=== PATIENT | male | born 1990 | race Caucasian/White ===

== ENCOUNTER 2022-10-13 09:02 | Emergency (ER) | payer MEDICAID ==
[2022-10-13 09:19] VITALS: RESP 18
[2022-10-13 10:38] LABS: Amorphous Sediment,Urine Moderate /hpf; Appearance,Urine Turbid (Clear); Bacteria,Urine Rare /hpf; Bilirubin,Urine Negative (Negative); Blood,Urine Large (Negative); Budding Yeast,Urine Rare /hpf; Color,Urine Red; Glucose,Urine (UA) Negative (Negative); Ketones,Urine Negative (Negative); Leukocyte Esterase,Urine Trace (Negative); Mucus,Urine Many /hpf; Nitrite,Urine Negative (Negative); PH, Urine 5.5 (5.0-8.0); Protein,Urine 1+ (Negative); RBC,Urine >182 /hpf (0-5); Specific Gravity,Urine 1.026 (1.001-1.035); Urobilinogen,Urine <2.0 mg/dL (<2.0); WBC,Urine 7 /hpf (0-5)
[2022-10-13] MEDS ORDERED: SODIUM CHLORIDE 0.9% 1,000 ML IV ONE (10:41)
--- NOTE | 2022-10-13 10:41 | ED ---
Abdominal Pain HPI - General Chief Complaint: Abdominal Pain Stated Complaint: Abd pain Time Seen by Provider: 10/13/22 10:27 Source: patient Mode of arrival: ambulatory Limitations: no limitations - History of Present Illness Initial Comments: 32 year old male presents to the emergency department for LLQ pain that radiates to his left flank x 1 day. He notes he woke up with a dull pain in the LLQ that has progressively worsened through the morning. He has not tried anything for his symptoms and has never had this before. He denies any trauma or previous injury. He denies fever, vomiting, diarrhea, dysuria, hematuria. He admits to a family history of kidney stones. - Related Data Previous Rx's Medication Instructions Recorded Ketorolac [Toradol] 10 mg PO Q8HR #15 tab 10/13/22 Allergies Allergy/AdvReac Type Severity Reaction Status Date / Time No Known Allergies Allergy Verified 10/13/22 09:19 Review of Systems ROS Statement: Those systems with pertinent positive or pertinent negative responses have been documented in the HPI. ROS Other: All systems not noted in ROS Statement are negative. Past Medical History Past Medical History: No Reported History Past Surgical History: No Surgical Hx Reported Past Psychological History: No Psychological Hx Reported Smoking Status: Never smoker Past Alcohol Use History: Occasional Past Drug Use History: None Reported General Exam Limitations: no limitations General appearance: alert, in no apparent distress Head exam: Present: atraumatic, normocephalic, normal inspection Eye exam: Present: normal appearance, PERRL, EOMI. Absent: scleral icterus, c onjunctival injection, periorbital swelling ENT exam: Present: normal exam, mucous membranes moist Neck exam: Present: normal inspection. Absent: tenderness, meningismus, lymphadenopathy Respiratory exam: Present: normal lung sounds bilaterally. Absent: respiratory distress, wheezes, rales, rhonchi, stridor Cardiovascular Exam: Present: regular rate, normal rhythm, normal heart sounds. Absent: systolic murmur, diastolic murmur, rubs, gallop, clicks GI/Abdominal exam: Present: soft, normal bowel sounds. Absent: distended, tenderness, guarding, rebound, rigid Extremities exam: Present: normal inspection, full ROM, normal capillary refill. Absent: tenderness, pedal edema, joint swelling, calf tenderness Back exam: Present: normal inspection. Absent: CVA tenderness (R), CVA tenderness (L) Neurological exam: Present: alert, oriented X3, CN II-XII intact Psychiatric exam: Present: normal affect, normal mood Skin exam: Present: warm, dry, intact, normal color. Absent: rash Course Vital Signs 10/13/22 10/13/22 10/13/22 09:15 12:15 14:00 Temperature 98 F 98.7 F 98.1 F Pulse Rate 72 83 86 Respiratory 18 18 18 Rate Blood Pressure 148/100 135/78 146/92 O2 Sat by Pulse 100 97 98 Oximetry Medical Decision Making - Medical Decision Making Was pt. sent in by a medical professional or institution (, PA, MODEL MAKER, urgent care, hospital, or intermediate...) When possible be specific @ -[No] Did you speak to anyone other than the patient for history (EMS, parent, family, police, friend...)? What history was obtained from this source @ -[No] Did you review nursing and triage notes (agree or disagree)? Why? @ -[I reviewed and agree with nursing and triage notes] Were old charts reviewed (outside hosp., previous admission, EMS record, old EKG, old radiological studies, urgent care reports/EKG's, intermediate records)? Report findings @ -[No old charts were reviewed] Differential Diagnosis (chest pain, altered mental status, abdominal pain women, abdominal pain men, vaginal bleeding, weakness, fever, dyspnea, syncope, headache, dizziness, GI bleed, back pain, seizure, CVA, palpatations, mental health)? @ -[not applicable] EKG interpreted by me (3pts min.). @ -[As above] X-rays interpreted by me (1pt min.). @ -[None done] CT interpreted by me (1pt min.). @ reveals a 4mm stone at L UVP without evidence of hydronephrosis U/S interpreted by me (1pt. min.). @ -[None done] What testing was considered but not performed or refused? (CT, X-rays, U/S, labs)? Why? @ -[None] What meds were considered but not given or refused? Why? @ -[None] Did you discuss the management of the patient with other professionals (professionals i.e. , PA, MODEL MAKER, lab, RT, psych nurse, manager social work, motorized squad lieutenant, teacher, assault amphibious vehicle officer, human services case manager)? Give summary @ -[No] Was smoking cessation discussed for >3mins.? @ -[No] Was critical care preformed (if so, how long)? @ -[No] Were there social determinants of health that impacted care today? How? (Homelessness, low income, unemployed, alcoholism, drug addiction, transportation, low edu. Level, literacy, decrease access to med. care, skilled nursing, rehab)? @ -[No] Was there de-escalation of care discussed even if they declined (Discuss DNR or withdrawal of care, Hospice)? DNR status @ -[No] What co-morbidities impacted this encounter? (DM, HTN, Smoking, COPD, CAD, Cancer, CVA, ARF, Chemo, Hep., AIDS, mental health diagnosis, sleep apnea, morbid obesity)? @ -[None] Was patient admitted / discharged? Hospital course, mention meds given and route, prescriptions, significant lab abnormalities, going to OR and other pertinent info. @ -Patient presents to the emergency department for L flank pain. Patient had lab work and performed in the emergency department which were remarkable for nephrolithiasis of L kidney, I discussed the results in detail with the patent, who verbalized understanding. Patient was given IV fluids, toradol, zofran, with symptomatic relief in the ER. Return precautions were discussed with recommend close follow up with Dr. Vega in 1-2 days. Patient was discharged with a pr escription for toradol and EC stater pack with Tylenol 3's. patient was discharged in stable condition. I discussed the Case with RIOS Avila who agrees with plan for discharge Undiagnosed new problem with uncertain prognosis? @ -Nephrolithiasis Drug Therapy requiring intensive monitoring for toxicity (Heparin, Nitro, Insulin, Cardizem)? @ -[No] Were any procedures done? @ -[No] Diagnosis/symptom? @ -nephrolthiasis of L kidney a Acute, or Chronic, or Acute on Chronic? @ acute Uncomplicated (without systemic symptoms) or Complicated (systemic symptoms)? @ uncomplicated Side effects of treatment? @ -[No] Exacerbation, Progression, or Severe Exacerbation? @ -[No] Poses a threat to life or bodily function? How? (Chest pain, [place], [place], pneumonia, PE, COPD, DKA, ARF, appy, cholecystitis, CVA, Diverticulitis, Homicidal, Suicidal, threat to staff... and all critical care pts) @ -low likelihood - Lab Data Result diagrams: 10/13/22 10:47 10/13/22 10:47 Lab Results 10/13/22 10/13/22 10/13/22 Range/Units 09:28 10:47 10:47 WBC 13.0 H (3.8-10.6) k/uL RBC 4.42 (4.30-5.90) m/uL Hgb 14.4 (13.0-17.5) gm/dL Hct 39.1 (39.0-53.0) % MCV 88.5 (80.0-100.0) fL MCH 32.6 (25.0-35.0) pg MCHC 36.9 (31.0-37.0) g/dL RDW 14.2 (11.5-15.5) % Plt Count 211 (150-450) k/uL MPV 8.2 Neutrophils % 88 % Lymphocytes % 7 % Monocytes % 4 % Eosinophils % 0 % Basophils % 0 % Neutrophils # 11.3 H (1.3-7.7) k/uL Lymphocytes # 0.9 L (1.0-4.8) k/uL Monocytes # 0.5 (0-1.0) k/uL Eosinophils # 0.1 (0-0.7) k/uL Basophils # 0.1 (0-0.2) k/uL Poikilocytosis Slight Sodium 139 (137-145) mmol/L Potassium 4.8 (3.5-5.1) mmol/L Chloride 107 (98-107) mmol/L Carbon Dioxide 23 (22-30) mmol/L Anion Gap 9 mmol/L BUN 13 (9-20) mg/dL Creatinine 0.65 L (0.66-1.25) mg/dL Est GFR (CKD-EPI)AfAm >90 (>60 ml/min/1.73 sqM) Est GFR (CKD-EPI)NonAf >90 (>60 ml/min/1.73 sqM) Glucose 100 H (74-99) mg/dL Calcium 9.4 (8.4-10.2) mg/dL Total Bilirubin 1.0 (0.2-1.3) mg/dL AST 45 (17-59) U/L ALT 45 (4-49) U/L Alkaline Phosphatase 91 (38-126) U/L Total Protein 7.4 (6.3-8.2) g/dL Albumin 4.4 (3.5-5.0) g/dL Urine Color Red Urine Appearance Turbid (Clear) Urine pH 5.5 (5.0-8.0) Ur Specific Reeders 1.026 (1.001-1.035) Urine Protein 1+ H (Negative) Urine Glucose (UA) Negative (Negative) Urine Ketones Negative (Negative) Urine Blood Large H (Negative) Urine Nitrite Negative (Negative) Urine Bilirubin Negative (Negative) Urine Urobilinogen <2.0 (<2.0) mg/dL Ur Leukocyte Esterase Trace H (Negative) Urine RBC >182 H (0-5) /hpf Urine WBC 7 H (0-5) /hpf Amorphous Sediment Moderate H (None) /hpf Urine Bacteria Rare H (None) /hpf Urine Mucus Many H (None) /hpf Urine Yeast (Budding) Rare H (None) /hpf Disposition Clinical Impression: Left nephrolithiasis Disposition: HOME SELF-CARE Condition: Stable Additional Instructions: PLease return to the nearest emergency department if fever, hematuria, or worsening flank pain develops. Prescriptions: Ketorolac [Toradol] 10 mg PO Q8HR #15 tab Is patient prescribed a controlled substance at d/c from ED?: No Referrals: Lorie De Guzman DO [Primary Care Provider] - 1-2 days Jose Vega MD [STAFF PHYSICIAN] - 1-2 days Time of Disposition: 13:44
[2022-10-13 11:22] LABS: Basophils # (A) 0.1 k/uL (0-0.2); Basophils % (A) 0 %; Eosinophils # (A) 0.1 k/uL (0-0.7); Eosinophils % (A) 0 %; HCT 39.1 % (39.0-53.0); HGB 14.4 gm/dL (13.0-17.5); Lymphocytes # (A) 0.9 k/uL (1.0-4.8); Lymphocytes % (A) 7 %; MCH 32.6 pg (25.0-35.0); MCHC 36.9 g/dL (31.0-37.0); MCV 88.5 fL (80.0-100.0); Mean Platelet Volume 8.2; Monocytes # (A) 0.5 k/uL (0-1.0); Monocytes % (A) 4 %; Neutrophils # (A) 11.3 k/uL (1.3-7.7); Neutrophils % (A) 88 %; Platelet Count 211 k/uL (150-450); Poikilocytosis Slight; RBC 4.42 m/uL (4.30-5.90); RDW 14.2 % (11.5-15.5)
[2022-10-13 11:51] LABS: ALT 45 U/L (4-49); African American GFR (CKD) >90 (>60 ml/min/1.73 sqM); Albumin 4.4 g/dL (3.5-5.0); Anion Gap 9 mmol/L; Blood Urea Nitrogen 13 mg/dL (9-20); Calcium 9.4 mg/dL (8.4-10.2); Carbon Dioxide 23 mmol/L (22-30); Chloride 107 mmol/L (98-107); Glucose 100 mg/dL (74-99); Non-African American GFR(CKD) >90 (>60 ml/min/1.73 sqM); Sodium 139 mmol/L (137-145); Total Protein 7.4 g/dL (6.3-8.2)
[2022-10-13 12:06] LABS: AST 45 U/L (17-59); Alkaline Phosphatase 91 U/L (38-126); Potassium 4.8 mmol/L (3.5-5.1)
--- NOTE | 2022-10-13 13:04 | CT ---
EXAMINATION TYPE: CT abdomen pelvis wo con DATE OF EXAM: 10/13/2022 COMPARISON: None HISTORY: 32-year-old male kidney stone, left flank pain CT DLP: 1301 mGycm. Automated exposure control for dose reduction was used. TECHNIQUE: Contiguous axial scanning of the abdomen and pelvis without IV contrast. Coronal and sagit jeanine reconstructions performed. FINDINGS: Heart is upper limits of normal in size without pericardial effusion. Mild bronchial wall thickening in the lower lungs. There may be slight mosaic attenuation. Consider small airways disease. Possible tiny hiatal hernia. Noncontrast appearance of the liver, gallbladder, adrenal glands, right kidney, and pancreas show no gross abnormality. The spleen is mildly enlarged at 15.3 cm. Left kidney shows mild hydronephrosis with minimal perinephric edema. A 4 mm stone at the level of th e UPJ. No dilated small bowel, free fluid, or free air. No mesenteric or retroperitoneal lymphadenopathy. Normal appendix. Mild stool within the right side of the abdomen. No pericolonic inflammatory change. A couple partially calcified soft tissue nodules in the left side of the upper pelvis could represent sequela of prior inflammatory etiology or granulomatous disease. Bladder urine distended. A few pelvic phleboliths are noted on the right. No abnormal fluid collectio n in the pelvis or pelvic lymphadenopathy. Bones: Mild degenerative change of the hips. Mild degenerative changes left SI joint. No osseous dest ructive process. IMPRESSION: 1. A 4 mm stone at the left UPJ contributing to mild left-sided obstructive uropathy. 2. Possible small airways disease affecting the visualized lower lungs. 3. Incidental: Tiny hernia and mild splenomegaly at 15.3 cm. Clinically correlate.
--- NOTE | 2022-10-13 13:29 | XR ---
EXAMINATION TYPE: XR KUB DATE OF EXAM: 10/13/2022 COMPARISON: CT abdomen pelvis 10/13/2022 HISTORY: Kidney stone TECHNIQUE: Upright view of the abdomen was obtained with 2 radiographs. FINDINGS: Small bowel demonstrates no evidence for dilatation or air fluid levels. Gas and fecal material is seen in non-distended colon. No convincing evidence for pneumoperitoneum. No definitive calcifications overlying the kidneys. Known left UPJ 4 mm calculus is not definitively appreciated on the radiograph. The lung bases are clear. The osseous structures are intact. IMPRESSION: 1. Overall nonobstructive bowel gas pattern. 2. Known left UPJ 4 mm calculus is not definitively appreciated on the radiograph.
[2022-10-13] MEDS ORDERED: ACET/COD 300 MG/30 MG STARTER PACK 6 TAB BTL PO STA (13:46)
[2022-10-13 13:58] VITALS: BP 146/92; PULSE 86; TEMP 98.1
== END 2022-10-13 14:01 | disposition home or self-care (01) ==
LOC: EC 09:02
DX: N20.0 Calculus of kidney (principal)
CPT/HCPCS: 36415; 74018; 74176; 80053; 81001; 85025; 96360; 99284

== ENCOUNTER → 2022-10-21 | Outpatient (CLI) | payer MEDICAID ==
--- NOTE | 2022-10-21 15:58 | XR ---
EXAMINATION TYPE: XR KUB DATE OF EXAM: 10/21/2022 Comparison: 10/13/2022 Clinical History: 32-year-old male N20.1 CALCULUS OF URETER Findings: No suspicious calcification clearly identified radiographically. Nonobstructive bowel gas pattern. Mi ld to moderate stool in the right side of the colon. Impression: No suspicious urinary tract calcifications clearly identified radiographically.
== END | disposition home or self-care (01) ==
LOC: RADXRMAIN 13:47
PROVIDERS: ATTEND Urology
DX: N20.1 Calculus of ureter (principal)
CPT/HCPCS: 74018